=== PATIENT | female | born 1970 | race Caucasian/White ===

== ENCOUNTER 2023-06-16 06:50 | Emergency (ER) | payer OTHER ==
[~2023-06-16] VITALS: Ht 152.4 cm; Wt 63.5 kg
[2023-06-16 07:09] VITALS: BP 110/73; PULSE 80; RESP 20; TEMP 98.3; O2SAT 99
[2023-06-16 08:27] VITALS: BP 110/73; PULSE 80; RESP 20; TEMP 98.3; O2SAT 99
== END 2023-06-16 08:27 | disposition home or self-care (01) ==
LOC: MED 06:50
DX: S80.02XA Contusion of left knee, initial encounter (principal); X58.XXXA Exposure to other specified factors, initial encounter; Y93.89 Activity, other specified; Y92.89 Other specified places as the place of occurrence of the external cause; Y99.8 Other external cause status
CPT/HCPCS: 73562; 99283; Q0092